=== PATIENT | female | born 1980 | race African-American/Black ===

== ENCOUNTER 2023-08-20 20:28 | Emergency (ER) | payer SELFPAY ==
[2023-08-20 20:47] VITALS: BP 102/69; PULSE 88; RESP 18; TEMP 97.5; BMI 32.3
[2023-08-20] MEDS ORDERED: ACETAMINOPHEN 1000 MG/100 ML BAG IVPB ONE (21:31)
[2023-08-20] MEDS ORDERED: ACETAMINOPHEN 500 MG TABLET (FP) PO ONE (22:00)
[2023-08-20] MEDS ORDERED: ACETAMINOPHEN 325 MG TABLET (FP) ONE (22:05)
[2023-08-20 23:11] LABS: EPI CELLS >36 /uL (0-25.1); HYALINE CASTS 1 /uL (0-3.1); PH,URINE 6.5 (5.0-8.0); URINE APPEARANCE CLOUDY; URINE BACTERIA 191 /uL (0-1359); URINE BILIRUBIN NEGATIVE (NEGATIVE); URINE COLOR YELLOW; URINE GLUCOSE (UA) NEGATIVE (NEGATIVE); URINE KETONE NEGATIVE (NEGATIVE); URINE LEUK ESTERASE 1+ (NEGATIVE); URINE NITRITE NEGATIVE (NEGATIVE); URINE PROTEIN NEGATIVE (NEGATIVE); URINE RBC 11 /uL (0-23.9); URINE UROBILINOGEN 0.2 mg/dL (0.2-1.0); URINE WBC 34 /uL (0-25.8)
[2023-08-20 23:12] LABS: HCG,QUALITATIVE URINE Negative
== END 2023-08-20 23:40 | disposition left against medical advice (07) ==
LOC: JER 20:28
DX: R22.43 Localized swelling, mass and lump, lower limb, bilateral (principal)
CPT/HCPCS: 81003; 84703; 87086; 99283-25